=== PATIENT | female | born 1980 | race Caucasian/White ===

== ENCOUNTER 2021-01-17 04:51 | Emergency (ER) | payer BC | END 2021-01-17 05:36 | disposition home or self-care (01) | LOC: ERS 04:51 | DX: T16.2XXA Foreign body in left ear, initial encounter (principal); W45.8XXA Other foreign body or object entering through skin, initial encounter | CPT/HCPCS: 69200 ==

== ENCOUNTER 2022-01-29 13:19 | Outpatient (CLI) | payer BC | END 2022-01-29 13:20 | disposition home or self-care (01) | LOC: ULT 13:19 | PROVIDERS: ATTEND Internal Medicine Rheumatology | DX: R23.0 Cyanosis (principal) | CPT/HCPCS: 93923 ==

== ENCOUNTER 2022-08-28 13:11 | Outpatient (CLI) | payer BC | END 2022-08-28 13:12 | disposition home or self-care (01) | LOC: RAD 13:11 | PROVIDERS: ATTEND Family Medicine | DX: M19.90 Unspecified osteoarthritis, unspecified site (principal); R93.7 Abnormal findings on diagnostic imaging of other parts of musculoskeletal system ==

== ENCOUNTER 2023-02-18 13:05 | Outpatient (CLI) | payer BC | END 2023-02-18 13:06 | disposition home or self-care (01) | LOC: RAD 13:05 | PROVIDERS: ATTEND Family Medicine | DX: M54.50 Low back pain, unspecified (principal); Z98.890 Other specified postprocedural states | CPT/HCPCS: 72072; 72100 ==